=== PATIENT | female | born 1930 | race Caucasian/White ===

== ENCOUNTER → 2016-08-11 | Outpatient (CLI) | payer OTHER | LOC: BHFA 12:45 | PROVIDERS: ATTEND Internal Medicine Cardiovascular Disease | DX: I48.2 Chronic atrial fibrillation (principal); I50.9 Heart failure, unspecified; I34.0 Nonrheumatic mitral (valve) insufficiency; I10 Essential (primary) hypertension ==

== ENCOUNTER → 2017-08-13 | Outpatient (CLI) | payer OTHER | LOC: FIMAGING 10:39 | DX: Z12.31 Encounter for screening mammogram for malignant neoplasm of breast (principal) ==

== ENCOUNTER 2018-04-29 20:27 | Inpatient (IN) | payer OTHER ==
--- NOTE | 2018-04-29 21:08 | EDPHY ---
H & P Stated Complaint: right flank pain with retention and frequency Time Seen by Provider: 04/29/18 20:57 HPI/ROS: CHIEF COMPLAINT: Right lower quadrant pain x1 week HISTORY OF PRESENT ILLNESS: 87-year-old female via private vehicle complaining 1 week of right lower quadrant abdominal pain. She has had decreased appetite for the past 2 months after being diagnosed while in [place] for cystitis . States that she was not septic at that time, denies prolonged hospitalization. For the past 1 week she has noticed right lower quadrant abdominal pain, decreased appetite. No radiation of pain. He does note increased urinary frequency and dysuria as well. No nausea or vomiting. Bowel movements normal. No melena hematochezia. PRIMARY CARE PROVIDER: Dr. Margie Simon REVIEW OF SYSTEMS: 10 systems reviewed and negative with the exception of the elements mentioned in the history of present illness PAST MEDICAL & SURGICAL HISTORY: Breast cancer. Atrial fibrillation. Hypertension SOCIAL HISTORY:Nonsmoker PHYSICAL EXAM (Prior to examination, patient consented to physical exam, hands were washed and my usual and customary physical exam procedures followed) 1) GENERAL: Well-developed, well-nourished, alert and oriented. Appears to be in no acute distress. 2) HEAD: Normocephalic, atraumatic 3) HEENT: Pupils equal, round, reactive to light bilaterally. Sclera anicteric. 4) NECK: Full range of motion, no meningeal signs. 5) LUNGS: Clear auscultation bilaterally, no wheezes, no rhonchi, no retractions. 6) HEART: Regular rate and rhythm, no murmur, no heave, no gallop. 7) ABDOMEN: No guarding, tender to palpation right lower quadrant, negative Bright's, negative Rovsing's, negative peritoneal sign, 8) MUSCULOSKELETAL: Moving all extremities, no focal areas of tenderness, no obvious trauma. No peripheral edema or discoloration. 9) BACK: No CVA tenderness, no midline vertebral tenderness, no fluctuance, no step-off, no obvious trauma, no visual or palpable abnormality. 10) SKIN: No rash, no petechiae. 11) Psychiatric: Patient is oriented X 3, there is no agitation. DIFFERENTIAL DIAGNOSIS: My differential diagnosis includes, but is not limited to, acute appendicitis, acute cholecystitis, pyelonephritis, bowel obstruction, acute pancreatitis, ovarian torsion, gastritis and urinary tract infection. The patient understands that this diagnosis is provisional and can never be 100% accurate. This is a partial list of diagnoses considered. These considerations are based on history, physical exam, past history and reassessment. - Personal History Current Tetanus/Diphtheria Vaccine: Yes Current Tetanus Diphtheria and Acellular Pertussis (TDAP): Yes Tetanus Vaccine Date: 2012 - Medical/Surgical History Hx Asthma: No Hx Chronic Respiratory Disease: No Hx Diabetes: No Hx Cardiac Disease: Yes Hx Renal Disease: No Hx Cirrhosis: No Hx Alcoholism: No Hx HIV/AIDS: No Hx Splenectomy or Spleen Trauma: No Other PMH: Afib. Breast cancer, left lumpectomy. hypertension. lyme disease - Social History Smoking Status: Former smoker Constitutional: Initial Vital Signs Temperature (C) 37.3 C 04/29/18 20:32 Heart Rate 88 04/29/18 20:32 Respiratory Rate 16 04/29/18 20:32 Blood Pressure 172/118 H 04/29/18 20:32 O2 Sat (%) 91 L 04/29/18 20:32 O2 Delivery Mode Room Air Allergies/Adverse Reactions: carvedilol [From Coreg] Allergy (Verified 08/12/13 14:01) shortness of breath codeine Allergy (Verified 04/29/18 20:36) Home Medications: Medication Instructions Recorded Multivitamins [Tab-A-Jose] 1 each PO DAILY 08/12/13 Warfarin Sodium [Coumadin 5MG (RX)] 2.5 mg PO SUTUWETHSA@1800 08/12/13 Warfarin Sodium [Coumadin 5MG (RX)] 5 mg PO MOFR@1800 08/12/13 Losartan-Hctz 100-12.5 mg Tab 04/29/18 Medical Decision Making - Diagnostics Imaging Results: Due to PACS issue, at the time of this writing, imaging reports do not autopopulate ED Course/Re-evaluation: 9:08 p.m.: Will obtain diagnostic studies including i-STAT creatinine, urinalysis plan on CT imaging of the abdomen and pelvis. Care of patient under supervision of secondary supervising physician Dr Almanzar with whom I discussed case. 9:30 p.m.: Patient's urinalysis positive for pyuria and bacteriuria. Will administer IV ceftriaxone. Awaiting CT imaging. 11:40 p.m.: CT imaging at this time is positive for radiographic signs of pyelonephritis with large uterine fibroid obstructing the right ureter. Will consult with Urology. At this time I do not think the patient is septic 12:10 a.m.: Consultation with on-call Urology Dr. Shahid will consult for Urology. - Data Points Laboratory Results: Laboratory Results 04/29/18 21:15 04/29/18 21:15 04/29/18 04/29/18 04/29/18 21:17 21:15 21:15 WBC RBC Hgb Hct MCV MCH MCHC RDW Plt Count MPV Neut % (Auto) Lymph % (Auto) [place] % (Auto) Eos % (Auto) Baso % (Auto) Nucleat RBC Rel Count Absolute Neuts (auto) Absolute Lymphs (auto) Absolute Monos (auto) Absolute Eos (auto) Absolute Basos (auto) Absolute Nucleated RBC Immature Gran % Immature Gran # PT 21.8 SEC H SEC (12.0-15.0) INR 1.89 H (0.83-1.16) APTT 41.0 SEC H SEC (23.0-38.0) Sodium 136 mEq/L mEq/L (135-145) Potassium 3.9 mEq/L mEq/L (3.3-5.0) Chloride 95 mEq/L L mEq/L (97-110) Carbon Dioxide 31 mEq/l mEq/l (22-31) Anion Gap 10 mEq/L mEq/L (6-14) BUN 19 mg/dL mg/dL (7-23) Creatinine 0.7 mg/dL mg/dL (0.6-1.0) Estimated GFR > 60 Glucose 105 mg/dL H mg/dL (70-100) Calcium 9.4 mg/dL mg/dL (8.5-10.4) Total Bilirubin 1.1 mg/dL mg/dL (0.1-1.4) Conjugated Bilirubin 0.2 mg/dL mg/dL (0.0-0.5) Unconjugated Bilirubin 0.9 mg/dL mg/dL (0.0-1.1) AST 28 IU/L IU/L (14-46) ALT 29 IU/L IU/L (9-52) Alkaline Phosphatase 130 IU/L H IU/L (38-126) Total Protein 7.6 g/dL g/dL (6.3-8.2) Albumin 4.4 g/dL g/dL (3.5-5.0) Lipase 155 IU/L IU/L (23-300) Urine Color ROSALINA Urine Appearance MODERATELY TURBID Urine pH 8.0 H (5.0-7.5) Ur Specific [place] 1.015 (1.002-1.030) Urine Protein 3+ H (NEGATIVE) Urine Ketones NEGATIVE (NEGATIVE) Urine Blood 2+ H (NEGATIVE) Urine Nitrate POSITIVE H (NEGATIVE) Urine Bilirubin NEGATIVE (NEGATIVE) Urine Urobilinogen NEGATIVE EU EU (0.2-1.0) Ur Leukocyte Esterase 3+ H (NEGATIVE) Urine RBC 50-182 /hpf H /hpf (0-3) Urine WBC 50-182 /hpf H /hpf (0-3) Ur Epithelial Cells TRACE /lpf /lpf (NONE-1+) Triple Phos Crystals PRESENT /hpf /hpf (NONE-1+) Urine Bacteria TRACE /hpf H /hpf (NONE SEEN) Hyaline Casts 1-5 /lpf /lpf (0-1) Urine Glucose NEGATIVE (NEGATIVE) 04/29/18 21:15 WBC 12.02 10^3/uL H 10^3/uL (3.80-9.50) RBC 4.50 10^6/uL 10^6/uL (4.18-5.33) Hgb 13.2 g/dL g/dL (12.6-16.3) Hct 39.7 % % (38.0-47.0) MCV 88.2 fL fL (81.5-99.8) MCH 29.3 pg pg (27.9-34.1) MCHC 33.2 g/dL g/dL (32.4-36.7) RDW 15.9 % H % (11.5-15.2) Plt Count 200 10^3/uL 10^3/uL (150-400) MPV 10.7 fL fL (8.7-11.7) Neut % (Auto) 76.8 % H % (39.3-74.2) Lymph % (Auto) 10.4 % L % (15.0-45.0) [place] % (Auto) 12.1 % % (4.5-13.0) Eos % (Auto) 0.2 % L % (0.6-7.6) Baso % (Auto) 0.3 % % (0.3-1.7) Nucleat RBC Rel Count 0.0 % % (0.0-0.2) Absolute Neuts (auto) 9.22 10^3/uL H 10^3/uL (1.70-6.50) Absolute Lymphs (auto) 1.25 10^3/uL 10^3/uL (1.00-3.00) Absolute Monos (auto) 1.45 10^3/uL H 10^3/uL (0.30-0.80) Absolute Eos (auto) 0.03 10^3/uL 10^3/uL (0.03-0.40) Absolute Basos (auto) 0.04 10^3/uL 10^3/uL (0.02-0.10) Absolute Nucleated RBC 0.00 10^3/uL 10^3/uL (0-0.01) Immature Gran % 0.2 % % (0.0-1.1) Immature Gran # 0.03 10^3/uL 10^3/uL (0.00-0.10) PT INR APTT Sodium Potassium Chloride Carbon Dioxide Anion Gap BUN Creatinine Estimated GFR Glucose Calcium Total Bilirubin Conjugated Bilirubin Unconjugated Bilirubin AST ALT Alkaline Phosphatase Total Protein Albumin Lipase Urine Color Urine Appearance Urine pH Ur Specific [place] Urine Protein Urine Ketones Urine Blood Urine Nitrate Urine Bilirubin Urine Urobilinogen Ur Leukocyte Esterase Urine RBC Urine WBC Ur Epithelial Cells Triple Phos Crystals Urine Bacteria Hyaline Casts Urine Glucose Medications Given: Discontinued Medications Ceftriaxone Sodium/Dextrose (Rocephin 1 Gm (Premix)) 50 mls @ 100 mls/hr IV EDNOW ONE PRN Reason: Protocol Stop: 04/29/18 22:38 Last Admin: 04/29/18 22:18 Dose: 50 mls Departure - Departure Disposition: [facility] Clinical Impression: Pyelonephritis, Obstructive uropathy Uterine fibroid Qualifiers: Uterine leiomyoma location: unspecified location Qualified Code(s): D25.9 - Leiomyoma of uterus, unspecified Condition: Fair
[2018-04-29 21:45] LABS: PLATELET COUNT 200 10^3/uL (150-400)
[2018-04-29] MEDS ORDERED: IOPAMIDOL (ISOVUE-300) 100 ML BTL ONE (23:10)
[2018-04-30] LABS: INR 1.89 (0.83-1.16); PROTIME(PATIENT) 21.8 SEC (12.0-15.0)
[2018-04-30] MEDS ORDERED: ONDANSETRON 4 MG/2 ML VIAL IVP PRN (00:17)
[2018-04-30] MEDS ORDERED: ACETAMINOPHEN 325 MG TAB PO PRN (00:17)
[2018-04-30] MEDS ORDERED: ONDANSETRON DISINTEGRATING 4 MG TAB PO PRN (00:17)
[2018-04-30] MEDS ORDERED: NS 1,000 ML IV SCH (00:30)
--- NOTE | 2018-04-30 04:33 | PDGENHP ---
History and Physical - Chief Complaint Right flank pain - History of Present Illness Source-patient provides history appears reliable. EMR was reviewed and case discussed with ED provider. HPI-this is a very pleasant 87-year-old female with past medical history significant for atrial fibrillation on Coumadin, diastolic CHF on O2 at , remote history of breast cancer status post lumpectomy, HTN, history of Lyme disease presents emergency department today with complaints of 1 week of right intermittent flank pain and with radiation to right lower quadrant. Patient reports significantly decreased appetite over the last several weeks but particularly in the last several days. She has been experiencing dysuria and bladder spasms. She denies any hematuria. She has experienced fevers chills and sweats. Patient was diagnosed with the UTI 1 month ago before she left [place] for [place]. She had been placed on antibiotics which she completed. She had never previously had any symptoms as noted above until 1 week ago. History Information - Allergies/Home Medication List Allergies/Adverse Reactions: carvedilol [From Coreg] Allergy (Verified 08/12/13 14:01) shortness of breath codeine Allergy (Verified 04/29/18 20:36) Home Medications: Multivitamins [Tab-A-Jose] 1 each PO DAILY 08/12/13 [Last Taken 08/12/13] Warfarin Sodium [Coumadin 5MG (RX)] 2.5 mg PO SUTUWETHSA@1800 08/12/13 [Last Taken 08/10/13] Warfarin Sodium [Coumadin 5MG (RX)] 5 mg PO MOFR@1800 08/12/13 [Last Taken 08/11] Losartan-Hctz 100-12.5 mg Tab 04/29/18 [Last Taken Unknown] I have personally reviewed and updated: family history, medical history, social history, surgical history - Past Medical History Additional medical history: Atrial fibrillation on Coumadin, breast cancer status post lumpectomy, diastolic CHF, HTN, Lyme disease, nocturnal hypoxia while at elevation with supplemental oxygen. - Surgical History Additional surgical history: Left lumpectomy and lymph node dissection 2000, cholecystectomy, cardiac catheterization reported normal 2010 - Family History Additional family history: Brother with history CHF. Mother and father with history of emphysema and long-term tobacco use - Social History Smoking Status: Former smoker Tobacco Use: Cigarettes (Quit age 44) Alcohol Use: Occasionally (Wine with dinner) Drug Use: None Additional social history: Patient is and lives in [facility]. She visits her children in [place] for several months each year. Cor status DNR Review of Systems Review of Systems: ROS: 10pt was reviewed & negative except for what was stated in HPI & below Constitutional: Reports: chills, fever, malaise, other (Sweats) EENMT: Reports: other (Hoarseness, reflux and gums intermittently). Denies: nose congestion, sore throat Cardiac: Reports: no symptoms, irregular heart rate, palpitations (Chronic palpitations). Denies: chest pain, edema, syncope Respiratory: Reports: shortness of breath (Chronic shortness of breath with exertion. Nocturnal oxygen while in [place] and [facility]). Denies: cough, orthopnea Gastrointestinal: Reports: other (Mild epigastric abdominal pain.). Denies: vomitting, nausea Genitourinary: Reports: burning, flank pain, frequency, other (See HPI). Denies : hematuria Muscolosketal: Reports: other (Muscle aching with exercise otherwise no myalgias. 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 Denies: rash Neurological: Reports: no symptoms Hematologic/Lymphatic: Reports: easy bruising Physical Exam Physical Exam: Selected Entries 04/29/18 20:32 Blood Pressure Automatic Method Heart Rate 88 Respiratory 16 Rate O2 Sat (%) 91 L Temperature (C) 37.3 C Blood Pressure 172/118 H Mean Arterial 136 H Pressure (MAP) O2 Delivery Room Air Mode Temperature Oral Source Temp Pulse Resp BP Pulse Ox 37.3 C 82 16 124/77 H 94 04/30/18 00:00 04/30/18 00:00 04/30/18 00:00 04/30/18 00:00 04/30/18 00:02 O2 (L/minute) 2 Constitutional: no apparent distress, chronically ill appearing, other (NAD. Pleasant elderly frail-appearing female is lying quietly in bed. She does not appear toxic. Appears fatigued.) Eyes: PERRL, anicteric sclera, EOMI Ears, Nose, Mouth, Throat: moist mucous membranes, other (No oropharyngeal erythema. No nasal discharge.), No poor dentition Cardiovascular: regular rate and rhythym, no murmur, rub, or gallop, pulses symmetric bilaterally, No edema Peripheral Pulses: 1+: dorsalis-pedis (R), dorsalis-pedis (L) Respiratory: no respiratory distress, no rales or rhonchi, clear to auscultation , No respiratory distress Gastrointestinal: soft, non-tender abdomen, no palpable masses, other ( Hypoactive bowel sounds), No distension Genitourinary: other (Mild plantar and right abdominal discomfort), No bunch in urethra Skin: warm, normal color, no rashes or abrasions Musculoskeletal: full muscle strength, no muscle tenderness, other (Moves all extremities), No pain with ROM Neurologic: AAOx3, sensation intact bilaterally, other (Nonfocal exam.), No facial droop Psychiatric: interacting appropriately, not anxious, not encephalopathic, thought process linear, other (Thought process content and questions appropriate. Patient is pleasant and cooperative.) Lab Data & Imaging Review 04/30/18 05:30 04/30/18 05:30 WBC 12.02 10^3/uL (3.80-9.50) H 04/29/18 21:15 RBC 4.50 10^6/uL (4.18-5.33) 04/29/18 21:15 Hgb 13.2 g/dL (12.6-16.3) 04/29/18 21:15 Hct 39.7 % (38.0-47.0) 04/29/18 21:15 MCV 88.2 fL (81.5-99.8) 04/29/18 21:15 MCH 29.3 pg (27.9-34.1) 04/29/18 21:15 MCHC 33.2 g/dL (32.4-36.7) 04/29/18 21:15 RDW 15.9 % (11.5-15.2) H 04/29/18 21:15 Plt Count 200 10^3/uL (150-400) 04/29/18 21:15 MPV 10.7 fL (8.7-11.7) 04/29/18 21:15 Neut % (Auto) 76.8 % (39.3-74.2) H 04/29/18 21:15 Lymph % (Auto) 10.4 % (15.0-45.0) L 04/29/18 21:15 [place] % (Auto) 12.1 % (4.5-13.0) 04/29/18 21:15 Eos % (Auto) 0.2 % (0.6-7.6) L 04/29/18 21:15 Baso % (Auto) 0.3 % (0.3-1.7) 04/29/18 21:15 Nucleat RBC Rel Count 0.0 % (0.0-0.2) 04/29/18 21:15 Absolute Neuts (auto) 9.22 10^3/uL (1.70-6.50) H 04/29/18 21:15 Absolute Lymphs (auto) 1.25 10^3/uL (1.00-3.00) 04/29/18 21:15 Absolute Monos (auto) 1.45 10^3/uL (0.30-0.80) H 04/29/18 21:15 Absolute Eos (auto) 0.03 10^3/uL (0.03-0.40) 04/29/18 21:15 Absolute Basos (auto) 0.04 10^3/uL (0.02-0.10) 04/29/18 21:15 Absolute Nucleated RBC 0.00 10^3/uL (0-0.01) 04/29/18 21:15 Immature Gran % 0.2 % (0.0-1.1) 04/29/18 21:15 Immature Gran # 0.03 10^3/uL (0.00-0.10) 04/29/18 21:15 PT 21.8 SEC (12.0-15.0) H 04/29/18 21:15 INR 1.89 (0.83-1.16) H 04/29/18 21:15 APTT 41.0 SEC (23.0-38.0) H 04/29/18 21:15 Sodium 136 mEq/L (135-145) 04/29/18 21:15 Potassium 3.9 mEq/L (3.3-5.0) 04/29/18 21:15 Chloride 95 mEq/L (97-110) L 04/29/18 21:15 Carbon Dioxide 31 mEq/l (22-31) 04/29/18 21:15 Anion Gap 10 mEq/L (6-14) 04/29/18 21:15 BUN 19 mg/dL (7-23) 04/29/18 21:15 Creatinine 0.7 mg/dL (0.6-1.0) 04/29/18 21:15 Estimated GFR > 60 04/29/18 21:15 Glucose 105 mg/dL (70-100) H 04/29/18 21:15 Calcium 9.4 mg/dL (8.5-10.4) 04/29/18 21:15 Total Bilirubin 1.1 mg/dL (0.1-1.4) 04/29/18 21:15 Conjugated Bilirubin 0.2 mg/dL (0.0-0.5) 04/29/18 21:15 Unconjugated Bilirubin 0.9 mg/dL (0.0-1.1) 04/29/18 21:15 AST 28 IU/L (14-46) 04/29/18 21:15 ALT 29 IU/L (9-52) 04/29/18 21:15 Alkaline Phosphatase 130 IU/L (38-126) H 04/29/18 21:15 Total Protein 7.6 g/dL (6.3-8.2) 04/29/18 21:15 Albumin 4.4 g/dL (3.5-5.0) 04/29/18 21:15 Lipase 155 IU/L (23-300) 04/29/18 21:15 Urine Color ROSALINA 04/29/18 21:17 Urine Appearance MODERATELY TURBID 04/29/18 21:17 Urine pH 8.0 (5.0-7.5) H 04/29/18 21:17 Ur Specific [place] 1.015 (1.002-1.030) 04/29/18 21:17 Urine Protein 3+ (NEGATIVE) H 04/29/18 21:17 Urine Ketones NEGATIVE (NEGATIVE) 04/29/18 21:17 Urine Blood 2+ (NEGATIVE) H 04/29/18 21:17 Urine Nitrate POSITIVE (NEGATIVE) H 04/29/18 21:17 Urine Bilirubin NEGATIVE (NEGATIVE) 04/29/18 21:17 Urine Urobilinogen NEGATIVE EU (0.2-1.0) 04/29/18 21:17 Ur Leukocyte Esterase 3+ (NEGATIVE) H 04/29/18 21:17 Urine RBC 50-182 /hpf (0-3) H 04/29/18 21:17 Urine WBC 50-182 /hpf (0-3) H 04/29/18 21:17 Ur Epithelial Cells TRACE /lpf (NONE-1+) 04/29/18 21:17 Triple Phos Crystals PRESENT /hpf (NONE-1+) 04/29/18 21:17 Urine Bacteria TRACE /hpf (NONE SEEN) H 04/29/18 21:17 Hyaline Casts 1-5 /lpf (0-1) 04/29/18 21:17 Urine Glucose NEGATIVE (NEGATIVE) 04/29/18 21:17 Imaging Review: CT Scan of the Abdomen and Pelvis (With Contrast) Clinical Indications: Abdominal Pain, possible Appendicitis Technique: 80 mL of Isovue 300 were given intravenously by machine power injection. Multidetector helical CT imaging was performed from the diaphragm to the symphysis pubis. Dose reduction techniques were utilized. Findings: CT Abdomen: Lung bases are clear. No dominant hepatic mass or splenic lesion is identified. There is mild intrahepatic and extra hepatic biliary ductal dilatation postcholecystectomy. Adrenal glands appear normal. There is dilatation of the right renal pelvis, moderate, compatible with hydronephrosis, associated with dilatation of the right ureter into the pelvis, where a large calcified uterine fibroid creates obstructive uropathy. Abnormal thickening and enhancement of the urothelium of the right renal pelvis and ureter is suggestive of pyelonephritis. There is also perinephric inflammatory stranding surrounding the right kidney. The kidneys enhance symmetrically. No evidence of obstructive uropathy on the left. CT Pelvis: The appendix is normal appearance arising from the posterior aspect of the cecum. Trace peritoneal free fluid. Massive fibroid enlargement uterus, especially on the right. Impression: 1. Obstructive uropathy of the right renal collecting system secondary to a large calcified uterine fibroid in the pelvis, with secondary features of pyelonephritis and perinephric stranding. 2. No CT evidence of acute appendicitis. 3. Trace peritoneal free fluid. 4. Mild dilatation of the biliary system postcholecystectomy. Results called to Steve Amin PA-C, at 11:40 PM. Dictated By: Stephen Robles MD Visualized and Interpreted imaging results: Yes Assessment & Plan Assessment: Pleasant 87-year-old female with history of atrial fibrillation on Coumadin, breast cancer status post lumpectomy, diastolic CHF, HTN, nocturnal hypoxia who presents to ED with complaints of 1 week of cystitis, right flank pain radiating to the right lower abdomen. #Obstructive uropathy (Acute) - pyelonephritis with the hydronephrosis. Mechanical obstruction related to uterine fibroid. Patient has been started on Rocephin. She does not meet SIRS or sepsis criteria. (urology) has been consulted for further evaluation. Patient has been made NPO. Patient is on Coumadin with a subtherapeutic INR. #Pyelonephritis (Acute)/UTI - Rocephin as noted above. #Uterine fibroid (Acute) - discussed with patient's nothing acute needs to be addressed regarding this uterine fibroid today and while with active infection. She will require further evaluation by gynecology for intervention and potentially a hysterectomy due to likelihood that her UTIs and obstructive uropathy will be recurrent. Part of this plan will also need to consider the patient lives in [place] but her family support is here in [place]. She will further discuss with her family once a more concrete plan has been established. #Epigastric pain - patient has been describing some reflux type symptoms suspect she may have a little bit of gastritis. No suspicion for pancreatitis at this time are ulcer. Will place patient on a PPI. #Hypoxia - patient with history of diastolic CHF and nocturnal hypoxia while in [place]. Continue with supplemental oxygen. Chest x-ray in the morning preoperatively. Chronic medical issues # paroxysmal atrial fibrillation - patient chronically on Coumadin and INR is currently subtherapeutic. Holding Coumadin at this time pending Urology assessment. EKG has been ordered. Patient currently regular on exam. She is without any additional rate control. # diastolic CHF chronic and compensated-monitor fluid status with IV fluid supplementation. # benign essential hypertension - blood pressure initially quite elevated but likely contributing as her pain. This is now improved. Resume patient's losartan/HCTZ when her diet is advanced FEN - IV fluids for gentle hydration while NPO. Electrolytes adequate will monitor replace if needed. PPX - SCDs. INR subtherapeutic holding Coumadin this morning. Cor status-DNR DNI Disposition-patient admitted to observation status pending anticipate urologic procedure.
[2018-04-30 05:37] LABS: PLATELET COUNT 151 10^3/uL (150-400)
[2018-04-30] MEDS ORDERED: PANTOPRAZOLE SODIUM 40 MG VIAL IVP ONE (06:29)
--- NOTE | 2018-04-30 10:54 | ASMTCMCOM ---
CM Note CM Note Notes: Pt has been admitted with R flank pain, pyelonephritis. Urology consult requested for evaluation of obstructive uropathy. She lives in [facility] and is here visiting family. She has a calcified uterine fibroid which will require further evaluation by gynecology at a later date. D/C needs not known yet. CM will follow for any d/c needs identified. Date Signed: 04/30/2018 10:53 AM Electronically Signed By:MEAGAN Suazo
--- NOTE | 2018-04-30 14:18 | HOSPPROG ---
Hospitalist Progress Note Assessment/Plan: Pleasant 87-year-old female with history of atrial fibrillation on Coumadin, breast cancer status post lumpectomy, diastolic CHF, HTN, nocturnal hypoxia who presents to ED with complaints of 1 week of cystitis, right flank pain radiating to the right lower abdomen. First encounter, chart reviewed. #Obstructive uropathy (Acute) - Mechanical obstruction related to uterine fibroid. - (urology) has been consulted for further evaluation. -NPO. -Patient is on Coumadin with a subtherapeutic INR. #Pyelonephritis (Acute)/UTI - Rocephin #Uterine fibroid (Acute) - discussed with patient's nothing acute needs to be addressed regarding this uterine fibroid today and while with active infection. -She will require further evaluation by gynecology for intervention and potentially a hysterectomy due to likelihood that her UTIs and obstructive uropathy will be recurrent. -Part of this plan will also need to consider the patient lives in [place] but her family support is here in [place]. -She will further discuss with her family once a more concrete plan has been established. #Epigastric pain - patient has been describing some reflux type symptoms -Will place patient on a PPI. #Hypoxia - patient with history of diastolic CHF and nocturnal hypoxia - Continue with supplemental oxygen. -Chest x-ray shows chf -will give low dose diuretic after possible procedure # paroxysmal atrial fibrillation - patient chronically on Coumadin and INR is currently subtherapeutic. -Holding Coumadin at this time pending Urology assessment. -EKG has been ordered. # diastolic CHF chronic and compensated-monitor fluid status with IV fluid supplementation. -will diuresis after possible intervention. # benign essential hypertension - blood pressure initially quite elevated but likely contributing as her pain. -Resume patient's losartan/HCTZ when her diet is advanced FEN - IV fluids for gentle hydration while NPO. Electrolytes adequate will monitor replace if needed. PPX - SCDs. INR subtherapeutic holding Coumadin this morning. Cor status-DNR DNI Disposition-cont iv abx therapy in hospital setting Subjective: Feeling better. Hungry. No other issues. Objective: Vital Signs Temp Pulse Resp BP Pulse Ox 37.1 C 84 14 119/78 90 L 04/30/18 11:37 04/30/18 11:37 04/30/18 11:37 04/30/18 11:37 04/30/18 11:37 Laboratory Results 04/30/18 05:30 04/30/18 05:30 04/29/18 04/30/18 05/01/18 05:59 05:59 05:59 Intake Total 500 Balance 500 PT 21.8 SEC (12.0-15.0) H 04/29/18 21:15 INR 1.89 (0.83-1.16) H 04/29/18 21:15 - Physical Exam Constitutional: not in pain, chronically ill appearing, No obese Eyes: PERRL, anicteric sclera, EOMI Ears, Nose, Mouth, Throat: moist mucous membranes, hearing normal, ears appear normal Cardiovascular: No JVD, No tachycardia, No edema Respiratory: no respiratory distress, no rales or rhonchi, reduced air movement Gastrointestinal: normoactive bowel sounds, No tenderness, No ascites Skin: warm, normal color, No mottled Musculoskeletal: normal joint ROM, no joint effusions, generalized weakness Neurologic: AAOx3 Psychiatric: not anxious, not encephalopathic, thought process linear ICD10 Worksheet Patient Problems: Problems Problem Status Onset Gallstones Acute Mitral regurgitation Acute Atrial fibrillation Acute Congestive cardiac failure Acute Pyelonephritis Acute Obstructive uropathy Acute Uterine fibroid Acute
--- NOTE | 2018-04-30 19:53 | PDMN ---
Medical Necessity Medical necessity: MCG M300 UTI: 87 yo w/ R flank pain radiates to RLQ. Recent UTI on antibx she completed [address] shows acute obstructive uropathy, pyelonephritis w/ hydronephrosis. Leukocytosis noted, Pt started on IV antibx. Urology consult pending, anticipate urology procedure, pt will need additional MN for NPO status, IVF, IV antibx, pending uro consult and procedure. CT shows also acute uterine fibroid. Will need eval by gynecology for intervention and potentially a hysterectomy due to likelihood that her UTIs and obstructive uropathy will be recurrent. Hx afib on Coumadin, dCHF on O2 HS , breast ca/lumpectomy, HTN, lyme disease. Change to IP status 04/30/18 @ 1938 per MD order
--- NOTE | 2018-04-30 20:13 | SOAPPROG ---
[facility] Progress Note Assessment/Plan: Assessment: 1. Recurrent vs. persistent UTI. 2. Chronic right hydronephrosis due to extrinsic distal ureteral obstruction from large calcified uterine fibroid. Plan: See dictated consult note (#[id number]). Objective: Vital Signs Temp Pulse Resp BP Pulse Ox 36.9 C 81 14 134/83 H 98 04/30/18 15:40 04/30/18 15:40 04/30/18 15:40 04/30/18 15:40 04/30/18 15:40 PT 21.8 SEC (12.0-15.0) H 04/29/18 21:15 INR 1.89 (0.83-1.16) H 04/29/18 21:15 ICD10 Worksheet Patient Problems: Problems Problem Status Onset Obstructive uropathy Acute Pyelonephritis Acute Uterine fibroid Acute Atrial fibrillation Acute Congestive cardiac failure Acute Gallstones Acute Mitral regurgitation Acute
--- NOTE | 2018-04-30 20:46 | GCON ---
UROLOGY CONSULTATION DATE OF CONSULTATION: 04/30/2018 REFERRING PHYSICIAN: Hospitalist Service REASON FOR CONSULTATION: Right hydronephrosis and urinary tract infection. HISTORY: This is an 87-year-old woman who developed subacute intermittent right flank pain with radiation into the right lower quadrant about 1 week ago. Her symptoms persisted to the point that she presented to the emergency room because of associated decreased appetite that began a few weeks ago but had worsened over the last few days. She also had unmeasured fevers and chills at home. After presentation to the emergency room, she was admitted for further management. The patient's pertinent recent medical history is notable for a diagnosis of urinary tract infection in [place] approximately 2 months ago that presented solely with fevers. The patient was treated with antibiotics at that time. It is unclear whether she had any urologic urinary tract imaging performed at that time. Her fevers subsequently resolved, and she was doing well until the recurrent symptoms noted above began more recently. The patient also has a known history of a longstanding uterine fibroid for which she has previously chosen observation without definitive management. PAST MEDICAL HISTORY: Notable for atrial fibrillation (for which she is on Coumadin chronically), breast cancer (status post lumpectomy) diagnosed in 2000 , diastolic congestive heart failure, hypertension, Lyme disease (diagnosed 2 months ago), nocturnal hypoxia at elevation (for which she uses oxygen). PAST SURGICAL HISTORY: Includes left breast lumpectomy and axillary lymph node dissection in 2000, cholecystectomy. ADMISSION MEDICATIONS: Warfarin, losartan/hydrochlorothiazide 100/12.5 mg daily , multivitamin. MEDICAL ALLERGIES: Carvedilol causes shortness of breath, and codeine. FAMILY HISTORY: Noncontributory. SOCIAL HISTORY: The patient and her split time between [place], [place] , and [place]. She spends a majority of her time in [place] but has children here in the [place] area and, as a result, spends a significant time here as well. She has a Do Not Resuscitate status. REVIEW OF SYSTEMS: Unremarkable, other than mentioned above in the HPI and Past Medical History. PHYSICAL EXAM: GENERAL: Pleasant, thin, white female lying supine in bed in no acute distress presently. VITAL SIGNS: Blood pressure 134/83, pulse 81, respirations 14, oxygen saturation 98% on 2 L nasal cannula. Temperature 36.9. She has been afebrile since presentation here yesterday. Height 162 cm, weight 53 kg, BMI 20. HEENT: Normocephalic, atraumatic. NECK: No visual deformities. HEART: Regular rate. CHEST: Unlabored respiratory pattern. ABDOMEN: Soft without palpable masses. No obvious organomegaly. BACK: No CVA tenderness. EXTREMITIES: Warm without significant edema. VASCULAR: Normal femoral pulses bilaterally. NEUROLOGIC: She is alert and oriented. She answers all questions appropriately with normal mood and affect. RADIOGRAPHIC STUDIES: 04/[address] scan: Upon my review, notable for moderate right hydroureteronephrosis with probable extrinsic partial obstruction of distal right ureter due to a large calcified uterine fibroid. Otherwise, normal bilateral renal parenchymal anatomy with preserved cortical appearance. There is also significant lateral displacement of the distal right ureter as a result of the large calcified fibroid (fibroid calcium deposition is asymmetrically accentuated to the right side of her pelvis). LABORATORIES: CBC today notable for white blood cell count 10,400, which compares to 12,000 yesterday. INR yesterday 1.89. Chemistry panel today is normal with creatinine 0.6. Urinalysis yesterday notable for being nitrite positive with 3+ leukocyte, 50-182 red blood cells and white blood cells per high-power field with trace bacteria. A urine culture from yesterday on preliminary result reveals gram-negative rods that are nonlactose fermenting with greater than 100,000 colonies per cc. IMPRESSION: 1. Recurrent versus persistent urinary tract infection. 2. Probable chronic right hydroureteronephrosis with extrinsic distal ureteral partial obstruction secondary to large calcified uterine fibroid. 3. Coumadin-induced coagulopathy. This patient has a complicated presentation with recurrent versus persistent urinary tract infection with what is likely chronic longstanding right ureteral obstruction. It is unclear whether her infection is related to obstruction, although I presume it is probably not. Management options are complicated in this situation, particularly as it pertains to her right renal drainage. Options would include observation with treatment of urinary tract infection, intraoperative ureteral stenting (with the understanding that this may not result in improved renal drainage due to the very large and calcified uterine fibroid) and right nephrostomy tube placement by Interventional Radiology (with associated risks with this which would include significant renal hemorrhage due to her coagulopathy). Each option was compared and contrasted in detail with the patient today. Additionally, another question is whether she will need to eventually have treatment for her uterine fibroid. Because of the calcified nature, I do not believe that this uterine fibroid would be successfully amenable to vascular ablation and that she would require hysterectomy for this ( although I would defer to the opinions of Interventional Radiology and Gynecology regarding this). PLAN: 1. We have mutually decided to not actively pursue the likely chronic hydronephrosis and secondary distal ureteral partial obstruction. 2. Continue to treat her urinary tract infection based on culture results. I would be aggressive in treating this infection due to the recurrent and/or persistent nature in consideration of her recent treatment for urinary tract infection. 3. If she responds appropriately with antibiotic therapy and becomes asymptomatic, then she may not necessarily need treatment for her hydronephrosis and large uterine fibroid. However, if she does not become completely asymptomatic with antibiotic treatment of the urinary tract infection , then she will need to eventually undergo some form of drainage of her right kidney. 4. Hold further Coumadin administration until we have more clarity as to whether she will respond favorably to antibiotic therapy over the next couple of days and ensure she will not need some form of a renal drainage procedure during this period of time. Thank you for this consultation. Copy requested to: Renetta Mcleod /[id number]/MODL MTDD
[2018-05-01 08:54] VITALS: BP 142/70
[2018-05-01] MEDS ORDERED: Herbals/Supplements -Info Only PO SCH (09:00)
[2018-05-01] MEDS ORDERED: CHOLECALCIFEROL VIT D3 1,000 UNITS TAB PO SCH (09:00)
[2018-05-01] MEDS ORDERED: ASCORBIC ACID 500 MG TAB PO SCH (09:00)
--- NOTE | 2018-05-01 12:36 | SOAPPROG ---
[facility] Progress Note Assessment/Plan: Assessment: 1. Recurrent vs. persistent UTI: improving. Culture reveals Proteus mirabilis which is sensitive to multiple antibiotics. 2. Chronic right hydronephrosis due to extrinsic distal ureteral obstruction from large calcified uterine fibroid. Since she is so nicely clinically improving on antibiotic therapy, we can currently hold off on performing any type of drainage procedure on her right kidney. However, this may become necessary in the future, depending on her clinical course. Plan: 1. Recommend discharging the pt. on 7 days of Levaquin 500 mg daily. Considering the complexity of her situation, I believe a quinolone is most appropriate in this case. 2. Follow-up w/ me in the office in about 3 weeks, sooner if necessary. 3. She will also seek gynecologic opinion regarding her uterine fibroid. I have recommended Dr. Tu Kimble. Case reviewed w/ pt., pt's daughter, and Mara Sahu [employer]. Subjective: No complaints. Feels well. Objective: Vital Signs Temp Pulse Resp BP Pulse Ox 37.1 C 84 17 142/70 H 94 05/01/18 08:50 05/01/18 08:50 05/01/18 08:50 05/01/18 08:50 05/01/18 08:50 04/30/18 05/01/18 05/02/18 05:59 05:59 05:59 Intake Total 400 Output Total 700 300 Balance -300 -300 PT 21.8 SEC (12.0-15.0) H 04/29/18 21:15 INR 1.89 (0.83-1.16) H 04/29/18 21:15 Physical Exam - Physical Exam General Appearance: WD/WN, alert, no apparent distress Neuro/Psych: alert, normal mood/affect ICD10 Worksheet Patient Problems: Problems Problem Status Onset Obstructive uropathy Acute Pyelonephritis Acute Uterine fibroid Acute Atrial fibrillation Acute Congestive cardiac failure Acute Gallstones Acute Mitral regurgitation Acute
--- NOTE | 2018-05-01 13:11 | ASDISCHSUM ---
Discharge Information Plan Status:Home with No Needs Medically Cleared to Leave:04/30/2018 Discharge Date:04/30/2018 CM D/C Disposition:Home, Routine, Self-Care ADT D/C Disposition:Home, Routine, Self-Care Projected Discharge Date:04/30/2018 Transportation at D/C: Discharge Delay Reason: Follow-Up Date:04/30/2018 Discharge Slot: Final Diagnosis: Placement Information Patient Contact Information Contact Name:HUI Relationship: Address:[address] Work Phone: City:[facility] Phone: State/Zip Code:[place] [address] Email: Financial Information Financial Class:Medicare Primary Plan Desc:MEDICARE OUTPATIENT Primary Plan Number:[id number] Secondary Plan Desc:[employer] Secondary Plan Number:[id number] Assessment Information [facility] CM Progress Note CM Note CM Note Notes: Pt has been admitted with R flank pain, pyelonephritis. Urology consult requested for evaluation of obstructive uropathy. She lives in [facility] and is here visiting family. She has a calcified uterine fibroid which will require further evaluation by gynecology at a later date. D/C needs not known yet. CM will follow for any d/c needs identified. Date Signed: 04/30/2018 10:53 AM Electronically Signed By:MEAGAN Suazo Intervention Information
--- NOTE | 2018-05-01 13:11 | ASMTLACE ---
[facility] Length of stay for Answers: Less than 1 day current admission Comorbidities - select Answers: Any tumor (including all that apply lymphoma or leukemia) Congestive heart failure Other Notes: afib, Lyme disease, HTN # of Emergency department Answers: 1-2 visits in the last 6 months Score: 6 Date Signed: 05/01/2018 01:11 PM Electronically Signed By:Erika Liu RN
--- NOTE | 2018-05-01 13:13 | ASMTCMCOM ---
CM Note CM Note Notes: Patient medically cleared for discharge. No needs identified at present. CM available should needs arise. plan: Dc to home no needs. Date Signed: 05/01/2018 01:13 PM Electronically Signed By:Erika Liu RN
--- NOTE | 2018-05-01 15:52 | GDS ---
DISCHARGE DIAGNOSES: 1. Pyelonephritis. 2. Obstructive uropathy. 3. Uterine fibroids. 4. Epigastric pain. 5. Hypoxia. 6. Paroxysmal atrial fibrillation on chronic anticoagulation. 7. Diastolic congestive heart failure. 8. Benign essential hypertension. CONSULTATIONS: Urology. STUDIES AND PROCEDURES DONE: CT of the abdomen. PHYSICAL EXAM: GENERAL: The patient is alert. VITAL SIGNS: Afebrile at 37.1. Pulse is 84, respir atory rate 17. Blood pressure is 142/70. She is saturating 94% on 2 L. I have seen and evaluated the patient on the day of discharge. HOSPITAL COURSE: The patient is an 87-year-old female who presented to the emergency room with compl aints of flank pain. She was evaluated and diagnosed with: 1. Pyelonephritis. During this hospitalization she received IV Rocephin. This had been transitione d to oral Levaquin in the setting of Proteus mirabilis. She will continue this and follow up with Ur ology in the outpatient setting. 2. Obstructive uropathy. The patient did have a CAT scan performed during this hospitalization, and a consultation from Dr. Shahid of urology. It was noted that the patient had what appears to be obs tructing fibroid in the CAT scan. It has been recommended that she follow up in the outpatient [facility] with a wheel fitter. Dr. Tu Kimble has been recommended for potential further treatment of thi s obstructive uropathy. 3. Epigastric pain. This had resolved. The patient has been treated with proton pump inhibitor. 4. Hypoxia. The patient required supplemental oxygen nocturnally at baseline. She had a history of diastolic congestive heart failure but appears to be stable at the time of disposition. 5. Paroxysmal atrial fibrillation with chronic Coumadin therapy and anticoagulation. The patient's INR is subtherapeutic at 1.89 upon admission. I have instructed her to follow up with the Coumadin Inge goldman on 05/04/2018, for further INR evaluation. She is in agreement with this plan. 6. Benign essential hypertension. The patient's home medications have been continued during this ho spitalization. DISPOSITION: The patient will be discharged home independently with her daughter. There is a signifi cant followup plan. I have discussed with the patient regarding following up with Dr. Shahid as well as following up with Dr. Tu Kimble of gynecology. She is in agreement with this. She will follo w up with Dr. Simon, who is her primary care provider in the area, for further medical management. Appointment will be made for the [facility] for 05/04/2018, to further evaluate her I NR. She has been educated that while on Levaquin, her INR could be elevated, and she is aware of thi s. DISCHARGE MEDICATIONS: Please refer to EMR form. I have provided the patient a prescription for Lev aquin 750 mg daily #7. I have discussed the patient's disposition with Dr. Shahid, who is in agreeme nt with this plan. TIME SPENT WITH PATIENT: I spent greater than 35 minutes in the care, coordination, and management o f this patient's discharge. /[id number]/MODL
[2018-05-02] MEDS ORDERED: MULTIVITAMINS 1 EACH TAB PO SCH (09:00)
== END 2018-05-01 13:49 | disposition home or self-care (01) | DRG 690 ==
LOC: F1N 04-30 08:08 → OBSVTOIN 04-30 19:38
PROVIDERS: ADMIT Family Medicine; ATTEND Family Medicine
DX: N12 Tubulo-interstitial nephritis, not specified as acute or chronic (principal); I11.0 Hypertensive heart disease with heart failure; I50.32 Chronic diastolic (congestive) heart failure; N13.9 Obstructive and reflux uropathy, unspecified; D25.9 Leiomyoma of uterus, unspecified; R10.13 Epigastric pain; R09.02 Hypoxemia; I48.0 Paroxysmal atrial fibrillation; Z79.01 Long term (current) use of anticoagulants; Z85.3 Personal history of malignant neoplasm of breast; Z66 Do not resuscitate
CPT/HCPCS: 96365; J0696; Q9967